=== PATIENT | female | born 1970 | race Caucasian/White ===

== ENCOUNTER 2017-01-31 11:50 | Emergency (ER) | payer OTHER ==
[~2017-01-31] VITALS: Ht 172.7 cm; Wt 99.8 kg
[~2017-01-31 11:50] MED LIST: VENTOLIN HFA18 GM INH
[2017-01-31] MEDS ORDERED: ZOFRAN ODT4 MG PO (16:24)
== END 2017-01-31 16:45 | disposition home or self-care (01) ==
LOC: ED 11:50
DX: N83.201 Unspecified ovarian cyst, right side (principal); R10.812 Left upper quadrant abdominal tenderness; R10.816 Epigastric abdominal tenderness; Z88.8 Allergy status to other drugs, medicaments and biological substances; Z88.1 Allergy status to other antibiotic agents; Z88.0 Allergy status to penicillin; Z88.2 Allergy status to sulfonamides; Z88.5 Allergy status to narcotic agent; Z91.038 Other insect allergy status
CPT/HCPCS: 74177; 80053; 82150; 83690; 84703; 85025; 96361; 96374; 96375; 99284; J1170; J2405; J7030; Q9967

== ENCOUNTER 2018-09-16 00:05 | Emergency (ER) | payer SELFPAY ==
[~2018-09-16] VITALS: Ht 172.7 cm; Wt 90.7 kg
[~2018-09-16 00:05] MED LIST changes: +LOXAPINE10 MG PO; +METFORMIN HCL500 MG PO; +TRAZODONE HCL50 MG PO; +ZOFRAN ODT4 MG PO; +ZYPREXA10 MG PO
--- OUTSIDE RECORDS SUMMARY | 2018-09-16 00:08 | XMS ---
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 PHONE: Unknown [facility] Primary Care [facility] PHONE: Unknown Guidelines Source: [facility] Guidelines Date: 08/10/2018 Care Coordination: Currently engaged in mental health services with [facility].\T\nbsp; Please contact [facility] with mental health concerns.\T\nbsp; Blaise: [phone]. E.D. VISIT COUNT (12 MO.) 4 [facility] 1 [facility] ElizabethSang 3 [facility] Fernandes TOTAL 8 NOTE: Visits indicate total known visits. ED/UCC VISIT TRACKING (12 MO.) 09/16/2018 00:05 [facility] [place] TYPE: Emergency COMPLAINT: - CONFUSION 09/15/2018 11:19 [facility] [place] TYPE: Emergency COMPLAINT: - ABD PAIN/SORE THROAT 09/10/2018 11:53 [facility] [place] TYPE: Emergency DIAGNOSES: - SPYCH - Restlessness and agitation - Manic episode without psychotic symptoms, unspecified - PSYCH 09/08/2018 16:36 [facility] [place] TYPE: Emergency DIAGNOSES: - Schizophrenia, unspecified - MENTAL HEALTH EVAL 08/31/2018 17:16 [facility] [place] TYPE: Emergency DIAGNOSES: - Other chest pain - lower extremity pain 08/10/2018 13:00 [facility] Allison DEAN TYPE: Emergency DIAGNOSES: - Cough - Dizziness - Nonpsychotic mental disorder, unspecified - abd pain, sore throat - Fatigue - Abdominal Pain 07/03/2018 08:22 [facility] [place] TYPE: Emergency DIAGNOSES: - CRAMPING ALL OVER VOMITING BLOOD 06/16/2018 16:24 [facility] [place] TYPE: Emergency COMPLAINT: - MEDICAL CLEARANCE DIAGNOSES: - Other insect allergy status - Allergy status to other drugs, medicaments and biological substances status - Bipolar disorder, unspecified - Allergy status to narcotic agent status - Other residential (current) drug therapy - Allergy status to sulfonamides status - Allergy status to other antibiotic agents status - Delusional disorders - Allergy status to penicillin INPATIENT VISIT TRACKING (12 MO.) No inpatient visits to display in this time frame [email or web address]
== END 2018-09-16 05:31 | disposition home or self-care (01) ==
LOC: ED 00:05
DX: F31.9 Bipolar disorder, unspecified (principal); R41.0 Disorientation, unspecified; Z88.0 Allergy status to penicillin; Z88.1 Allergy status to other antibiotic agents; Z88.2 Allergy status to sulfonamides; Z88.5 Allergy status to narcotic agent; Z88.8 Allergy status to other drugs, medicaments and biological substances; Z91.030 Bee allergy status; Z79.899 Other long term (current) drug therapy
CPT/HCPCS: 36415; 71045; 80053; 81001; 85025; 99285-25; G0480